=== PATIENT | female | born 1985 | race Caucasian/White ===

== ENCOUNTER 2017-03-05 07:58 | Outpatient (CLI) | payer BC | END 2017-03-05 09:59 | disposition home or self-care (01) | LOC: OBT 07:58 → L-D 07:58 → OBT 09:59 | DX: O36.5930 Maternal care for other known or suspected poor fetal growth, third trimester, not applicable or unspecified (principal); Z3A.35 35 weeks gestation of pregnancy | CPT/HCPCS: 76815; 76818 ==

== ENCOUNTER 2017-03-12 10:15 | Outpatient (CLI) | payer BC | END 2017-03-12 12:29 | disposition home or self-care (01) | LOC: OBT 10:15 → L-D 10:15 → OBT 12:29 | DX: O36.5930 Maternal care for other known or suspected poor fetal growth, third trimester, not applicable or unspecified (principal); Z3A.37 37 weeks gestation of pregnancy | CPT/HCPCS: 76818 ==

== ENCOUNTER 2017-03-18 09:43 | Inpatient (IN) | payer BC ==
[2017-03-18] MEDS ORDERED: MISOPROSTOL 200 MCG TAB PR (11:00)
[2017-03-18] MEDS ORDERED: IBUPROFEN 600 MG TAB PO (11:00)
[2017-03-18] MEDS ORDERED: BUTORPHANOL 2 MG INJ IV (11:00)
[2017-03-18] MEDS ORDERED: CARBOPROST 250 MCG INJ IM (11:00)
[2017-03-18] MEDS ORDERED: LIDOCAINE 1% (MPF) 30 ML INJ INJ (11:00)
[2017-03-18] MEDS ORDERED: OXYTOCIN 30 UNITS/LR 500 ML IV (11:00)
[2017-03-18] MEDS ORDERED: METHYLERGONOVINE 0.2 MG INJ IM (11:00)
[2017-03-18] MEDS: LACTATED RINGER'S 1,000 ML IV ×3 (11:06→22:58)
[2017-03-18] MEDS: DINOPROSTONE 10 MG VAG SUPP VAG (11:14)
[2017-03-18 11:20] LABS: ADD MAN DIFF? NO
[2017-03-18 11:30] LABS: BASOPHILS % 0.4 % (0.0-2.0); EOSINOPHILS # 0.1 10^3/ul (0.0-0.5); EOSINOPHILS % 1.2 % (0.0-7.0); HEMATOCRIT 34.8 % (37.0-47.0); HEMOGLOBIN 12.5 g/dl (12.0-16.0); LYMPHOCYTES # 1.7 10^3/ul (0.8-2.9); LYMPHOCYTES % 17.1 % (15.0-51.0); MEAN CORPUSCULAR HEMOGLOBIN 32.6 pg (29.0-33.0); MEAN CORPUSCULAR HGB CONC 35.9 g/dl (32.0-37.0); MEAN CORPUSCULAR VOLUME 90.6 fl (82.0-101.0); MEAN PLATELET VOLUME 11.4 fl (7.4-10.4); MONOCYTE # 0.8 10^3/ul (0.3-0.9); MONOCYTES % 8.1 % (0.0-11.0); NEUTROPHIL # 6.9 10^3/ul (1.6-7.5); NEUTROPHILS % 69.2 % (39.0-77.0); PLATELET COUNT 173 10^3/UL (140-415); RED BLOOD COUNT 3.84 10^6/ul (4.20-5.40); RED CELL DISTRIBUTION WIDTH 12.8 % (11.5-14.5)
[2017-03-18 11:30] LABS: WHITE BLOOD COUNT 9.9 10^3/ul (4.8-10.8)
[2017-03-18 11:55] LABS: INR 0.89; PROTIME 12.1 Sec (11.9-14.9); PT RATIO 0.9
[2017-03-18 11:56] LABS: PARTIAL THROMBOPLASTIN TIME 27.6 Sec (25.0-35.0)
[2017-03-18 16:33] LABS: RAPID PLASMA REAGIN NONREACTIVE (NR)
[2017-03-18 16:57] LABS: HEPATITIS B SURFACE ANTIGEN NEGATIVE (NEGATIVE)
[2017-03-18] MEDS ORDERED: FENTAnyl 2MCG/ML-ROPIV 0.2% 100 ML (23:16)
[2017-03-19] MEDS: LACTATED RINGER'S 1,000 ML IV ×2 (00:43→05:52)
[2017-03-19] MEDS: FENTAnyl 2MCG/ML-ROPIV 0.2% 100 ML BAG EPI (08:15)
[2017-03-19] MEDS ORDERED: EPHEDrine SULFATE 50 MG/5 ML SYG IV (08:30)
[2017-03-19] MEDS ORDERED: DIPHENHYDRAMINE 50 MG INJ IV (08:30)
[2017-03-19] MEDS ORDERED: NALOXONE (0.4 MG/ML) INJ IV (08:30)
[2017-03-19] MEDS: ONDANSETRON 4 MG INJ IV (08:56)
[2017-03-19] MEDS ORDERED: OXYTOCIN 30 UNITS/LR 500 ML IV ×2 (10:00→13:00)
[2017-03-19] MEDS: OXYTOCIN 30 UNITS/LR 500 ML IV ×3 (12:41→17:35)
[2017-03-19] MEDS ORDERED: ONDANSETRON 4 MG INJ IV (13:00)
[2017-03-19] MEDS ORDERED: METHYLERGONOVINE 0.2 MG INJ IM (13:00)
[2017-03-19] MEDS ORDERED: HYDROCODONE/APAP (5/325) TAB PO ×2 (13:00)
[2017-03-19] MEDS ORDERED: CARBOPROST 250 MCG INJ IM (13:00)
[2017-03-19] MEDS ORDERED: DIBUCAINE 1% 30 GM OINT PR (13:00)
[2017-03-19] MEDS ORDERED: ACETAMINOPHEN 325 MG TAB PO ×2 (13:00)
[2017-03-19] MEDS ORDERED: MISOPROSTOL 200 MCG TAB PR (13:00)
[2017-03-19] MEDS ORDERED: DIPHENHYDRAMINE 25 MG CAP PO (13:00)
[2017-03-19] MEDS: IBUPROFEN 800 MG TAB PO (17:35)
[2017-03-19] MEDS: BENZOCAINE 20% 56 ML SPRAY TOP (17:35)
[2017-03-19] MEDS: LANOLIN 7 GM TUBE TOP (17:35)
[2017-03-19] MEDS: SENNA/DOCUSATE NA (8.6MG/50MG) TAB PO (21:00)
[2017-03-20] MEDS: IBUPROFEN 800 MG TAB PO ×5 (00:07→23:56)
[2017-03-20 09:31] LABS: ADD MAN DIFF? NO
[2017-03-20 09:38] LABS: WHITE BLOOD COUNT 13.9 10^3/ul (4.8-10.8)
[2017-03-20 09:38] LABS: BASOPHIL # 0.1 10^3/ul (0.0-0.1); BASOPHILS % 0.4 % (0.0-2.0); EOSINOPHILS # 0.2 10^3/ul (0.0-0.5); EOSINOPHILS % 1.1 % (0.0-7.0); HEMATOCRIT 34.8 % (37.0-47.0); HEMOGLOBIN 12.1 g/dl (12.0-16.0); LYMPHOCYTES # 2.1 10^3/ul (0.8-2.9); LYMPHOCYTES % 15.2 % (15.0-51.0); MEAN CORPUSCULAR HEMOGLOBIN 31.8 pg (29.0-33.0); MEAN CORPUSCULAR HGB CONC 34.8 g/dl (32.0-37.0); MEAN CORPUSCULAR VOLUME 91.3 fl (82.0-101.0); MEAN PLATELET VOLUME 11.2 fl (7.4-10.4); MONOCYTE # 1.2 10^3/ul (0.3-0.9); MONOCYTES % 8.9 % (0.0-11.0); NEUTROPHILS % 72.1 % (39.0-77.0); PLATELET COUNT 161 10^3/UL (140-415); RED BLOOD COUNT 3.81 10^6/ul (4.20-5.40); RED CELL DISTRIBUTION WIDTH 12.8 % (11.5-14.5)
[2017-03-20] MEDS: SENNA/DOCUSATE NA (8.6MG/50MG) TAB PO ×2 (09:54→21:27)
[2017-03-21] MEDS: IBUPROFEN 800 MG TAB PO ×2 (06:03→12:18)
[2017-03-21] MEDS: MEASLES,MUMPS,RUBELLA VACCINE INJ SC* (09:00)
[2017-03-21] MEDS: DIPHTH/TET/ACEL PERTUSS (ADULT) 0.5 ML VIAL IM* (09:00)
[2017-03-21] MEDS: VARICELLA VACCINE LIVE/PF 1,350 UNIT/0.5 ML ML SC* (09:00)
[2017-03-21] MEDS: SENNA/DOCUSATE NA (8.6MG/50MG) TAB PO (10:37)
== END 2017-03-21 12:40 | disposition home or self-care (01) | DRG 775 ==
LOC: L-D 09:43 → PP1 03-19 15:29
PROVIDERS: Obstetrics & Gynecology
PROC: 10E0XZZ Delivery of Products of Conception, External Approach (ICD-10-PCS; principal; 2017-03-19)
PROC: 0HQ9XZZ Repair Perineum Skin, External Approach (ICD-10-PCS; 2017-03-19)
PROC: 3E033VJ Introduction of Other Hormone into Peripheral Vein, Percutaneous Approach (ICD-10-PCS; 2017-03-19)
DX: O41.03X0 Oligohydramnios, third trimester, not applicable or unspecified (principal); O70.0 First degree perineal laceration during delivery; Z3A.38 38 weeks gestation of pregnancy; Z37.0 Single live birth
CPT/HCPCS: 62319; 85025; 85610; 85730; 86592; 86900; 86901; 87340; 90715; 90716